=== PATIENT | male | born 2000 | race Caucasian/White ===

== ENCOUNTER 2024-03-02 15:49 | Emergency (ER) | payer SELFPAY ==
[2024-03-02 15:52] VITALS: BP 179/125
[2024-03-02 16:48] VITALS: BP 128/98
[2024-03-02] MEDS: MOTRIN 600 MG PO (17:04)
--- NOTE | 2024-03-02 17:08 | ED.GENMED ---
History of Present Illness
General
Chief Complaint: Musculo-Skeletal Complaint
Source: patient
Exam Limitations: none
Time Seen by Provider: 03/02/24 16:11
Travel History
Have you had any contact with someone who has COVID-19?: No
Do you have any symptoms of coronavirus? Fever > 100 degrees, chills, cough, shortness of breath, sore throat, loss of taste or smell, muscle aches, or headache?: No
History of Present Illness
History of Present Illness:
Patient caught his foot and ankle in a [place] sewer drain. Severe pain lateral greater than medial ankle. No other injury or complaint
Past History
Past History
ED Past Medical History: None
Review of Systems
Review of Systems
All Other Systems: Not applicable
Phy Exam
Physical Exam
Physical Exam:
General: Nontoxic appearing in no distress
Skin: Warm and dry, no rash
Neuro: Alert, nontoxic, grossly nonfocal
Psychiatric: Good eye contact and appropriate
Musculoskeletal: Swelling lateral greater than medial ankle with tenderness. Achilles intact. Negative fifth metatarsal. No open wound. Motor or sensory neurovascular intact
Course
Orders/Labs/Results
Orders:
Orders
03/02/24 15:54
Ankle, Right 3 view CR [CR Ankle - Right Min 3 Views *] Urgent
Comment:
Reason For Exam: pain
03/02/24 15:55
Foot, Right 3 View [CR Foot - Right Min 3 Views] Urgent
Comment:
Reason For Exam: pain
03/02/24 16:42
Air Splint Right-Treatment ONCE
Crutches-Treatment ONCE
Ibuprofen [Motrin] 600 mg PO NOW STA
Vital Signs
Initial and Last Documented VS:
Initial Vital Signs
Temp Pulse Resp BP Pulse Ox
97.9 F 89 18 179/125 95
03/02/24 15:52 03/02/24 15:52 03/02/24 15:52 03/02/24 15:52 03/02/24 15:52
Last Documented Vital Signs
Temp Pulse Resp BP Pulse Ox
97.9 F 82 18 128/98 95
03/02/24 15:52 03/02/24 16:48 03/02/24 15:52 03/02/24 16:48 03/02/24 15:52
*Radiology
Radiology exam reviewed: preliminary read by ED provider (Negative) and radiology read reviewed (Negative)
*Pulse Oximetry
Patient hypoxic: no
*Critical Care Note
Total Time (30-74mins, 75-104mins- exclusive of procedures): Not Applicable
ED Attending Note
-
Portions of this chart may have been created with voice recognition software.� Occasional wrong word or��sound alike� substitutions may have occurred due to the inherent limitations of voice recognition software.
Discharge Plan
Departure
Patient Disposition: Home (Routine Discharge)
Date of Disposition: 03/02/24
Time of Disposition: 16:44
Patient with high blood pressure during this ER visit?: Yes
Discharge Problem:
Ankle sprain
Instructions: Ankle Sprain ED, BLOOD PRESSURE
Referrals:
Rosalio Honeycutt MD [Active] - Follow up in 5-7 days
Activity Restrictions/Additional Instructions:
Advil or Motrin for pain
Follow-up with orthopedics either through your company or the 1 listed
Interventions
Interventions:
*ED COVID-19 Vaccine History Last Done: 03/02/24 15:52
Discharge Date and Time
Print Language: CROATIAN
[2024-03-02 17:21] VITALS: BP 128/98
== END 2024-03-02 17:22 | disposition home or self-care (01) ==
LOC: EMR 15:49
PROVIDERS: EMERGENCY PHYSICIAN Emergency Medicine
DX: S93.401A Sprain of unspecified ligament of right ankle, initial encounter (principal); X58.XXXA Exposure to other specified factors, initial encounter; Y93.89 Activity, other specified; Y92.89 Other specified places as the place of occurrence of the external cause; Y99.0 Civilian activity done for income or pay; R03.0 Elevated blood-pressure reading, without diagnosis of hypertension
CPT/HCPCS: 99283; 29515; 73610; 73630